=== PATIENT | male | born 1970 | race Two or more races ===

== ENCOUNTER 2020-04-07 14:04 | Outpatient (CLI) | payer OTHER | END 2020-04-07 14:35 | disposition home or self-care (01) | LOC: NUCLEAR 14:04 | PROVIDERS: ATTEND Internal Medicine Hematology & Oncology | DX: D45 Polycythemia vera (principal); M06.09 Rheumatoid arthritis without rheumatoid factor, multiple sites | CPT/HCPCS: 78802; A9556 ==